=== PATIENT | female | born 1940 | race Hispanic/Latino ===

== ENCOUNTER → 2017-09-23 | Day surgery (SDC) | payer MEDICARE, OTHER ==
[2017-09-22 14:04] LABS: BASOPHILS % 0.3 % (0.0-1.0); EOSINOPHILS % 0.5 % (0.0-6.0); HEMATOCRIT 40.1 % (34.2-44.1); HEMOGLOBIN 13.4 g/dL (12.0-16.0); LYMPHOCYTES # (AUTO) 2.5 (1.0-3.2); LYMPHOCYTES % 34.1 % (18.0-39.1); MEAN CORPUSCULAR HEMOGLOBIN 28.5 pg (28-32); MEAN CORPUSCULAR HGB CONC 33.4 g/dL (31-35); MEAN CORPUSCULAR VOLUME 85.3 fL (81-99); MONOCYTES # (AUTO) 0.7 (0.2-0.8); MONOCYTES % 9.4 % (4.4-11.3); NEUTROPHILS # (AUTO) 4.1 (2.1-6.9); NEUTROPHILS % 55.4 % (38.7-80.0); PLATELET COUNT 208 x10e3/uL (140-360)
[~2017-09-23] MED LIST: FENTANYL CITRATE/PF 100MCG/2 ML INJ ONE; LISINOPRIL10 MG PO; MIDAZOLAM HCL 2 MG/2 ML VIAL ONE; PROPOFOL IV EMULSION 10 MG/ML 50 ML VIAL ONE
--- OUTSIDE RECORDS SUMMARY | 2017-09-23 07:54 | XMS REPORT ---
Author Author [facility] Address Unknown Phone Unavailable Care Team Providers Care Fiscal Agent Name Role Phone Unavailable Unavailable Problems This patient has no known problems. Allergies, Adverse Reactions, Alerts This patient has no known allergies or adverse reactions. Medications This patient has no known medications. Encounters Start Date/Time End Date/Time Encounter Type Admission Type Attending [facility] Care Department Encounter ID 2017-04-28 00:00:00 2017-04-28 00:00:00 Outpatient [facility] [id number] 2017-02-09 12:10:34 2017-02-09 12:10:34 Outpatient [facility] [id number] 2017-02-08 00:00:00 2017-02-08 00:00:00 Outpatient [facility] [id number] 2016-11-17 11:40:46 2016-11-17 11:40:46 Outpatient [facility] [id number] 2016-01-24 08:44:54 2016-01-24 08:44:54 Outpatient [facility] [id number]
--- OUTSIDE RECORDS SUMMARY | 2017-09-23 07:54 | XMS REPORT | Clinical Summary ---
Author Author [facility] Address Unknown Phone Unavailable Care Team Providers Care Certified Adapted Physical Educator Name Role Phone Dillon Owens MD PCP Allergies Not on File Current Medications Not on file Active Problems Not on file Encounters Date Type Specialty Care Team Description 12/28/2016 [facility] Dillon Owens Jr., MD Visit for screening Encounter mammogram 12/14/2016 Transcribe Access Dillon Owens Jr., MD Visit for screening Orders mammogram (Primary Dx) after 09/22/2016 Social History Tobacco Use Types Packs/Day Years Used Date Never Assessed Sex Assigned at Date Recorded Not on file Last Filed Vital Signs Not on file Plan of Treatment Health Maintenance Due Date Last Done Comments SHINGRIX VACCINE (#1) 1991 ZOSTER VACCINE 2001 PNEUMOCOCCAL 2006 POLYSACCHARIDE VACCINE AGE 65 AND OVER PNEUMOCOCCAL-13 2006 INFLUENZA VACCINE 12/22/2017 Results * Mammo Screening w Cad Bilateral (12/28/2016 12:54 PM) Specimen Performing Laboratory [facility] [address] [place] [address] Narrative EXAMINATION: MAMMO SCREENING W CAD BILATERAL COMPARISON:01/01/2016-08/22/2012 TECHNIQUE: Bilateral digital screening mammography was performed and interpreted using computer-assisted detection. CLINICAL HISTORY: Screening mammogram.The patient has no current breast complaints. FINDINGS: There are scattered fibroglandular densities in both breasts. There are benign calcifications in both breasts. No significant masses, calcifications, or other findings are seen in either breast.There has been no significant interval change. IMPRESSION: There is no mammographic evidence of malignancy. Recommend annual screening mammogram and correlation with physical examination. BI-RADS 2:BENIGN This facility is accredited by the [employer] for Mammography. A negative x-ray report should not delay biopsy if a dominant or clinically suspicious mass is present.Not all cancers are identified by x-ray. [id number] after 09/22/2016 Insurance Payer Benefit Subscriber ID Type Phone Address Plan / Group [facility] MEDIC[facility] DUAL xxxxxxxxx HMO COMPLETE [facility]
== END | disposition home or self-care (01) ==
LOC: OR 07:53
PROVIDERS: ATTEND Internal Medicine Gastroenterology
CPT/HCPCS: 36415; 43239; 45378; 85025; 93005; J2250